=== PATIENT | male | born 1995 | race Caucasian/White ===

== ENCOUNTER 2023-10-10 01:06 | Emergency (ER) | payer OTHER ==
[~2023-10-10] VITALS: Ht 172.7 cm; Wt 78.0 kg
[2023-10-10] MEDS ORDERED: KETOROLAC TROMETHAMINE INJ 30 MG/ML VIAL ONE (01:52)
[2023-10-10] MEDS: KETOROLAC TROMETHAMINE INJ 60 MG/2 ML VIAL IM ONE (01:53)
[2023-10-10 01:58] LABS: BASOPHILS % (AUTO) 0.3 % (0.0-2.0); EOSINOPHILS # (AUTO) 0.2 K/uL (0.0-0.7); EOSINOPHILS % (AUTO) 2.5 % (0.0-6.0); HEMATOCRIT 42 % (39-51); HEMOGLOBIN 13.6 g/dL (13.5-17.5); LYMPHOCYTES # (AUTO) 2.4 K/uL (0.8-4.8); MEAN CORPUSCULAR HEMOGLOBIN 22 PG (26.0-33.0); MEAN CORPUSCULAR HGB CONC 32 g/dl (31.0-36.0); MEAN CORPUSCULAR VOLUME 68 fL (80-96); MONOCYTES # (AUTO) 0.7 K/uL (0.1-1.30); MONOCYTES % (AUTO) 6.8 % (2.0-12.0); NEUTROPHILS # (AUTO) 6.3 K/uL (1.8-8.9); NEUTROPHILS % (AUTO) 65.4 % (43.0-81.0); PLATELET COUNT (AUTO) 333 K/uL (150-450); RED BLOOD CELL COUNT(AUTO) 6.14 MIL/uL (4.5-6.0); WHITE BLOOD COUNT (AUTO) 9.6 K/uL (4.3-11.0)
[2023-10-10 03:09] LABS: CALCIUM, SERUM 9.7 mg/dL (8.5-10.1); CREATININE 0.7 mg/dL (0.6-1.3); POTASSIUM 3.8 mmol/L (3.5-5.1)
[2023-10-10 03:16] LABS: ALBUMIN 4.3 g/dL (3.4-5.0); BILIRUBIN,TOTAL 0.3 mg/dL (0.2-1.0); TOTAL PROTEIN, SERUM 8.6 g/dL (6.4-8.2)
[2023-10-10 03:18] LABS: LACTIC ACID 0.5 mmol/L (0.4-2.0)
[2023-10-10] MEDS ORDERED: NAPR-1009 PO (04:28)
[2023-10-10 04:42] VITALS: BP 133/84; TEMP 98; O2SAT 100
== END 2023-10-10 04:43 | disposition home or self-care (01) ==
LOC: ER 01:22
DX: M43.6 Torticollis (principal)
CPT/HCPCS: 99285; 72125; 96372; 70450; 85025; 83605; 36415; 80053; J1885